=== PATIENT | female | born 1985 | race Caucasian/White ===

== ENCOUNTER → 2018-05-15 | Outpatient (CLI) | payer OTHER ==
[~2018-05-15] MED LIST: METF-397 PO
== END ==
LOC: LABNPT 09:29
PROVIDERS: ATTEND Obstetrics & Gynecology
DX: O28.8 Other abnormal findings on antenatal screening of mother (principal)
CPT/HCPCS: 82570; 84156

== ENCOUNTER 2018-05-18 12:58 | Outpatient (CLI) | payer OTHER ==
[~2018-05-18] VITALS: Ht 165.1 cm; Wt 79.1 kg
[2018-05-18] MEDS ORDERED: METF-397 PO (13:13)
[2018-05-18 13:14] VITALS: BP 124/85
== END 2018-05-18 15:30 | disposition home or self-care (01) ==
LOC: PREOP 12:58
PROVIDERS: ATTEND Obstetrics & Gynecology
DX: Z01.818 Encounter for other preprocedural examination (principal)
CPT/HCPCS: 87081

== ENCOUNTER → 2018-05-18 | Outpatient (CLI) | payer OTHER | LOC: LABNPT 15:21 | PROVIDERS: ATTEND Obstetrics & Gynecology | DX: O28.8 Other abnormal findings on antenatal screening of mother (principal) | CPT/HCPCS: 82570; 84156 ==

== ENCOUNTER 2018-05-26 12:40 | Inpatient (IN) | payer OTHER ==
[~2018-05-26] VITALS: Ht 165.1 cm; Wt 79.5 kg
--- NOTE | 2018-05-26 12:33 | NUR ---
Arrived to unit for repeat . Wt obtained and to room 315. gowned and to bed. Oriented to room, call light and surroundings. Oriented to plan of care.
--- OUTSIDE RECORDS SUMMARY | 2018-05-26 12:45 | XMS REPORT ---
Author Author Jatinder Morales [facility] Address [address] [place], [place] [id number] Care Team Providers Care Loading Manager Name Role Phone Jatinder Morales PCP Allergies and Adverse Reactions Name Reaction Notes NO KNOWN DRUG ALLERGIES Plan of Treatment Not available. Medications Active Name Start Date Estimated Completion Date SIG Comments TIMI (28) 3-0.02 mg oral tablet 12/03/2015 TAKE 1 TABLET BY ORAL ROUTE ONCE DAILY FOR 28 DAYS alprazolam 0.25 mg oral tablet 02/04/2016 take 1 tablet by oral route 2 times a day as needed Name Start Date Expiration Date SIG Comments omeprazole 20 mg oral capsule,delayed release(DR/EC) 03/22/2012 06/20/2012 take 1 capsule by oral route 2 times a day for 30 days [facility] D 24 Hour 180-240 mg oral tablet extended release 24 hr 11/28/20122012 TAKE 1 TABLET BY MOUTH DAILY Diflucan 150 mg oral tablet 03/29/2014 03/30/2014 take 1 tablet (150 mg) by oral route once for 1 day TIMI (28) 3-0.02 mg oral tablet 12/09/2014 03/31/2015 take 1 tablet by oral route once daily for 28 days Discontinued Name Start Date Discontinued Date SIG Comments Zoloft 50 mg oral tablet 05/27/2009 03/30/2011 take 1 tablet (50 mg) by oral route once daily Ortho Tri-Cyclen (28) 0.18/0.215/0.25 mg-35 mcg (28) oral tablet 05/27/2009 03/30/2011 take 1 tablet by oral route once daily paroxetine HCl 20 mg oral tablet 04/03/2012 06/15/2012 take 1 tablet (20 mg) by oral route once daily Retin-A 0.05 % topical cream 04/05/2012 07/11/2013 apply to the affected area( s) by topical route once daily at bedtime alprazolam 0.25 mg oral tablet 06/15/2012 07/11/2013 take 1 tablet by oral route daily as needed spironolactone 100 mg oral tablet 04/04/2013 07/11/2013 TAKE 1 TABLET BY MOUTH TWICE DAILY Wal-Fex D 24 Hour 180-240 mg oral tablet extended release 24 hr 05/17/201304/2014 TAKE 1 TABLET BY MOUTH EVERY DAY Sprintec (28) 0.25-35 mg-mcg oral tablet 07/11/2013 03/29/2014 take 1 tablet by oral route once daily Anny-D 24 Hour 180-240 mg oral tablet extended release 24 hr 12/09/2014 take 1 tablet by oral route once daily on an empty stomach with a glass of water for 30 days Problem List Description Status Onset *No known medical problems Active Vital Signs Date Time BP-Sys(mm[Hg] BP-Janeth(mm[Hg]) HR(bpm) RR(rpm) Temp WT HT HC BMI BSA BMI Percentile O2 Sat(%) 02/04/2016 3:56:00 PM 112 mmHg 80 mmHg 78 bpm 16 rpm 97.6 F 163 lbs 64 in 27.98 kg/m2 1.83 m2 99 % 04/07/2015 9:23:00 AM 124 mmHg 66 mmHg 82 bpm 18 rpm 97.6 F 144.125 lbs 64 in 24.7387 kg/m 1.7181 m 99 % 12/09/2014 3:47:00 PM 124 mmHg 64 mmHg 81 bpm 18 rpm 98.2 F 162.125 lbs 64 in 27.83 kg/m2 1.82 m2 98 % 03/29/2014 10:44:00 AM 120 mmHg 69 mmHg 78 bpm 98 F 155 lbs 64 in 26.6054 kg/m 1.7818 m 07/11/2013 3:49:00 PM 136 mmHg 68 mmHg 89 bpm 18 rpm 99.8 F 158.5 lbs 64 in 27.21 kg/m2 1.80 m2 100 % 04/04/2013 8:34:00 AM 112 mmHg 70 mmHg 95 bpm 16 rpm 97.6 F 153.375 lbs 97 % 12/11/2012 8:36:00 AM 115 mmHg 78 mmHg 80 bpm 20 rpm 97.7 F 159 lbs 64 in 27.29 kg/m2 1.80 m2 97 % 07/31/2012 4:15:00 PM 100 mmHg 78 mmHg 98 bpm 18 rpm 98.1 F 160.6 lbs 64 in 27.5666 kg/m 1.8137 m 98 % 06/15/2012 4:08:00 PM 120 mmHg 62 mmHg 88 bpm 16 rpm 98.6 F 157 lbs 98 % 04/03/2012 3:49:00 PM 122 mmHg 80 mmHg 77 bpm 16 rpm 98.2 F 155.5 lbs 98 % 03/22/2012 4:16:00 PM 110 mmHg 76 mmHg 76 bpm 16 rpm 98.5 F 152.375 lbs 98 % 03/30/2011 3:26:00 PM 128 mmHg 68 mmHg 80 bpm 144 lbs 64 in 24.7173 kg/m 1.7174 m 05/26/2009 3:14:00 PM 128 mmHg 72 mmHg 100 bpm 18 rpm 98.6 F 157.25 lbs 66 in 25.38 kg/m2 1.82 m2 Social History Name Description Comments Alcohol Current some day Occasionally Tobacco Current some day smoker Social smoker Living with significant other Clerical History of Procedures Date Ordered Description Order Status 04/07/2015 12:00 AM SPECIMEN HANDLING OFFICE-LAB Reviewed 04/07/2015 12:00 AM CYTOPATH C/V MANUAL Returned 03/30/2011 12:00 AM CYTOPATH TBS C/V MANUAL Reviewed 03/30/2011 12:00 AM SPECIMEN HANDLING OFFICE-LAB Reviewed 03/30/2011 12:00 AM CHYLMD TRACH DNA AMP PROBE Reviewed 03/30/2011 12:00 AM N.GONORRHOEAE DNA AMP PROB Reviewed 12/11/2012 12:00 AM URINE CULTURE/COLONY COUNT Returned 12/11/2012 12:00 AM SMEAR WET MOUNT SALINE/INK Returned 12/11/2012 12:00 AM TISSUE EXAM FOR FUNGI Returned 04/04/2013 12:00 AM METABOLIC PANEL TOTAL CA Returned 04/04/2013 12:00 AM REMOVE INTRAUTERINE DEVICE Reviewed 07/11/2013 12:00 AM CHORIONIC GONADOTROPIN ASSAY Returned 05/26/2009 12:00 AM COMPREHEN METABOLIC PANEL Reviewed 05/26/2009 12:00 AM ASSAY THYROID STIM HORMONE Reviewed 05/26/2009 12:00 AM COMPLETE CBC W/AUTO DIFF WBC Reviewed 05/26/2009 12:00 AM CHORIONIC GONADOTROPIN TEST Reviewed 02/11/2014 12:00 AM CHORIONIC GONADOTROPIN TEST Returned 03/29/2014 12:00 AM SPECIMEN HANDLING OFFICE-LAB Reviewed 03/29/2014 12:00 AM CYTOPATH C/V THIN LAYER Returned 12/10/2014 12:00 AM ASSAY OF INSULIN Returned Results Summary Data and Description Results 04/03/2012 7:27 PM WET PREP NO TRICH SEEN CLUE CELLS NONE SEEN 12/11/2012 10:43 AM WET PREP NO TRICH SEEN CLUE CELLS NONE SEEN 04/04/2013 9:38 AM GLUCOSE 118.0 mg/dLSODIUM 137.0 mmol/LPOTASSIUM 4.60 mmol/ LCHLORIDE 103.0 mmol/LCO2 25.0 mmol/LBUN 9.0 mg/dLCREATININE 0.80 mg/dLCALCIUM 9.40 mg/dLeGFR >60 mL/min/1.73 m2 04/04/2013 10:46 AM WET PREP NO TRICH SEEN CLUE CELLS PRESENT 02/11/2014 3:58 PM BETA HCG QUANT <1 MIU/ML History Of Immunizations Not available. History of Past Illness Name Date of Onset Comments Fatigue May 26 2009 3:20PM Depressive Disorder May 26 2009 3:20PM Oligomenorrhea May 26 2009 3:20PM *No known medical problems Routine gynecological examination Mar 30 2011 3:32PM Contraception, Surveillance Mar 30 2011 3:32PM Abdominal pain; epigastric Mar 22 2012 4:19PM Routine gynecological examination Apr 03 2012 3:52PM Acne Apr 03 2012 3:52PM Hirsutism Apr 03 2012 3:52PM Anxiety Disorder Jun 15 2012 4:11PM Hirsutism Jun 15 2012 4:11PM Rhinitis, Allergic Jul 31 2012 4:16PM Vaginal Discharge Dec 11 2012 8:41AM Urinary Frequency Dec 11 2012 8:41AM Routine gynecological examination Apr 04 2013 8:37AM Acne Apr 04 2013 8:37AM Hirsutism Apr 04 2013 8:37AM Vaginal Discharge Apr 04 2013 8:37AM IUD Removal Apr 04 2013 9:07AM Amenorrhea, Rule Out Jul 11 2013 3:52PM Amenorrhea Feb 11 2014 10:11AM Routine gynecological examination Mar 29 2014 10:53AM Candidal Vaginitis Mar 29 2014 10:53AM PCOS (polycystic ovarian syndrome) Dec 09 2014 3:48PM Hirsutism Dec 09 2014 3:48PM Benign skin lesion Dec 09 2014 3:48PM PCOS (polycystic ovarian syndrome) Dec 10 2014 12:07PM Routine gynecological examination Apr 07 2015 9:40AM Vaginal Discharge Apr 07 2015 9:40AM Anxiety Feb 04 2016 3:57PM Payers Insurance Name Company Name Plan Name Plan Number Policy Number Policy Group Number Start Date [facility] [id number] N[facility]A [facility] [id number] Tuesday, 2009 History of Encounters Visit Date Visit Type Provider 02/04/2016 Office visit Jatinder Morales EDGE TRIMMING MACHINE OPERATOR 04/07/2015 Office visit Nikkie Hercules EDGE TRIMMING MACHINE OPERATOR 12/09/2014 Office visit Nikkie Hercules EDGE TRIMMING MACHINE OPERATOR 03/29/2014 Office visit Nettie Fernández EDGE TRIMMING MACHINE OPERATOR 07/11/2013 Office visit Nikkie Hercules EDGE TRIMMING MACHINE OPERATOR 04/04/2013 Office visit Kasandra Delong MD 12/11/2012 Office visit Aracely Jules EDGE TRIMMING MACHINE OPERATOR 07/31/2012 Office visit Aracely Jules EDGE TRIMMING MACHINE OPERATOR 06/15/2012 Office visit Kasandra Delong MD 04/03/2012 Office visit Kasandra Delong MD 03/22/2012 Office visit Kasandra Delong MD 03/30/2011 Office visit Javier Boone MD 05/26/2009 Office visit Kasandra Delong MD 02/18/2009 Office visit Sebas Mukherjee MD 01/13/2009 Office visit Sebas Mukherjee MD
--- OUTSIDE RECORDS SUMMARY | 2018-05-26 12:45 | XMS REPORT ---
Author Author Jatinder Morales [facility] Address [address] [place], [place] [address] Care Team Providers Care Supervisor Long Goods Name Role Phone Jatinder Morales PCP Nikkie Hercules PreferredProvider Unavailable Allergies and Adverse Reactions Name Reaction Notes NO KNOWN DRUG ALLERGIES Plan of Treatment Not available. Medications Active Name Start Date Estimated Completion Date SIG Comments alprazolam 1 mg oral tablet 02/25/2017 take 0.5-1 tablet by oral route 2 times a [...] oral route once daily for 28 days TIMI (28) 3-0.02 mg oral tablet 12/03/2015 TAKE 1 TABLET BY ORAL ROUTE ONCE DAILY FOR 28 DAYS Discontinued Name Start Date Discontinued Date SIG [...] HC BMI BSA BMI Percentile O2 Sat(%) 02/25/2017 10:09:00 AM 118 mmHg 70 mmHg 78 bpm 16 rpm 96.6 F 157.125 lbs 64 in 26.97 kg/m2 1.79 m2 98 % 02/04/2016 3:56:00 PM 112 mmHg 80 mmHg 78 bpm 16 rpm 97.6 F 163 lbs 64 in 27.9786 kg/m 1.8272 m 99 % 04/07/2015 9:23:00 AM 124 mmHg 66 mmHg 82 bpm 18 rpm 97.6 F 144.125 lbs 64 in 24.74 kg/m2 1.72 m2 99 % 12/09/2014 3:47:00 PM 124 mmHg 64 mmHg 81 bpm 18 rpm 98.2 F 162.125 lbs 64 in 27.8284 kg/m 1.8223 m 98 % 03/29/2014 10:44:00 AM 120 mmHg 69 mmHg 78 bpm 98 F 155 lbs 64 in 26.61 kg/m2 1.78 m2 07/11/2013 3:49:00 PM 136 mmHg 68 mmHg 89 bpm 18 rpm 99.8 F 158.5 lbs 64 in 27.2062 kg/m 1.8018 m 100 % 04/04/2013 8:34:00 AM 112 mmHg 70 mmHg 95 bpm 16 rpm 97.6 F 153.375 lbs 97 % 12/11/2012 8:36:00 AM 115 mmHg 78 mmHg 80 bpm 20 rpm 97.7 F 159 lbs 64 in 27.292 kg/m 1.8046 m 97 % 07/31/2012 4:15:00 PM 100 mmHg 78 mmHg 98 bpm 18 rpm 98.1 F 160.6 lbs 64 in 27.57 kg/m2 1.81 m2 98 % 06/15/2012 4:08:00 PM 120 mmHg [...] mmHg 80 bpm 144 lbs 64 in 24.72 kg/m2 1.72 m2 05/26/2009 3:14:00 PM 128 mmHg 72 mmHg 100 bpm 18 rpm 98.6 F 157.25 lbs 66 in 25.3806 kg/m 1.8225 m Social History Name Description Comments Alcohol Current some day Occasionally Tobacco Current some day smoker Social smoker Living with significant other Clerical History of Procedures Date Ordered Description Order Status 04/07/2015 12:00 AM SPECIMEN HANDLING OFFICE-LAB Reviewed 04/07/2015 12:00 AM CYTOPATH C/V MANUAL Reviewed 03/30/2011 12:00 AM CYTOPATH TBS C/V MANUAL Reviewed 03/30/2011 12:00 AM SPECIMEN HANDLING OFFICE-LAB Reviewed 03/30/2011 12:00 AM CHYLMD TRACH DNA AMP PROBE Reviewed 03/30/2011 12:00 AM N.GONORRHOEAE DNA AMP PROB Reviewed 12/11/2012 12:00 AM URINE CULTURE/COLONY COUNT Reviewed 12/11/2012 12:00 AM SMEAR WET MOUNT SALINE/INK Reviewed 12/11/2012 12:00 AM TISSUE EXAM FOR FUNGI Reviewed 04/04/2013 12:00 AM METABOLIC PANEL TOTAL CA Reviewed 04/04/2013 12:00 AM REMOVE INTRAUTERINE DEVICE Reviewed 07/11/2013 12:00 AM CHORIONIC GONADOTROPIN ASSAY Reviewed 05/26/2009 12:00 AM COMPREHEN METABOLIC PANEL Reviewed 05/26/2009 12:00 AM ASSAY THYROID STIM HORMONE Reviewed 05/26/2009 12:00 AM COMPLETE CBC W/AUTO DIFF WBC Reviewed 05/26/2009 12:00 AM CHORIONIC GONADOTROPIN TEST Reviewed 02/11/2014 12:00 AM CHORIONIC GONADOTROPIN TEST Reviewed 03/29/2014 12:00 AM SPECIMEN HANDLING OFFICE-LAB Reviewed 03/29/2014 12:00 AM CYTOPATH C/V THIN LAYER Reviewed 12/10/2014 12:00 AM ASSAY OF INSULIN Reviewed Results Summary Date and Description Results 12/11/2012 10:43 AM WET PREP NO TRICH SEEN CLUE CELLS NONE SEEN 04/04/2013 9:38 AM GLUCOSE 118.0 mg/dLSODIUM 137.0 mmol/LPOTASSIUM 4.60 mmol/ LCHLORIDE 103.0 mmol/LCO2 25.0 mmol/LBUN 9.0 mg/dLCREATININE 0.80 mg/dLCALCIUM 9.40 mg/dLAGE 27 GFR NonAA 86 GFR AA 104 eGFR >60 mL/min/1.73 m2eGFR AA* >60 07/11/2013 4:20 PM TEST NEGATIVE 02/11/2014 3:58 PM BETA HCG QUANT <1 MIU/ML 12/16/2014 7:30 AM Insulin 14.0 History Of Immunizations Not available. History of [...] 2015 9:40AM Anxiety Feb 04 2016 3:57PM Anxiety Feb 25 2017 10:13AM Payers Insurance Name Company Name Plan Name Plan Number Policy Number Policy Group Number Start Date Cigsigrid Cigsigrid [id number] N/A BCBS [facility] [id number] Tuesday, 2009 [facility] [id number] N/A History of Encounters Visit Date Visit Type Provider 02/25/2017 Office visit Jatinder Morales POULTRY SCALDER 02/04/2016 Office visit Jatinder Morales POULTRY SCALDER 04/07/2015 Office visit Nikkie Hercules POULTRY SCALDER 12/09/2014 Office visit Nikkie Hercules POULTRY SCALDER 03/29/2014 Office visit Nettie Fernández POULTRY SCALDER 07/11/2013 Office visit Nikkie Hercules POULTRY SCALDER 04/04/2013 Office visit Kasandra Delong MD 12/11/2012 Office visit Aracely Jules POULTRY SCALDER 07/31/2012 Office visit Aracely Jules POULTRY SCALDER 06/15/2012 Office visit Kasandra Delong MD 04/03/2012 Office visit Kasandra Delong MD 03/22/2012 Office visit Kasandra Delong MD 03/30/2011 Office visit Javier Boone MD 05/26/2009 Office visit Kasandra Delong MD 02/18/2009 Office visit Sebas Mukherjee MD 01/13/2009 Office visit Sebas Mukherjee MD
--- OUTSIDE RECORDS SUMMARY | 2018-05-26 12:45 | XMS REPORT ---
Author Author Nikkie Hercules Organization [facility] Address [address] [place], [place] [id number] Care Team Providers Care Liner Replacer Name Role Phone Nikkie Hercules PCP Unavailable Allergies and Adverse Reactions Name Reaction Notes NO KNOWN DRUG ALLERGIES Plan of Treatment Planned Activity Comments Planned Date Planned Time Plan/Goal CYTOPATH C/V MANUAL 04/07/2015 12:00 AM Medications Name Start Date Expiration Date SIG Comments omeprazole 20 mg oral capsule,delayed release(/EC) 03/22/2012 06/20/2012 take 1 capsule by oral [...] HC BMI BSA BMI Percentile O2 Sat(%) 04/07/2015 9:23:00 AM 124 mmHg 66 mmHg [...] 04/07/2015 12:00 AM SPECIMEN HANDLING OFFICE-LAB Reviewed 03/30/2011 12:00 AM CYTOPATH TBS C/V [...] Routine gynecological examination Apr 07 2015 9:40AM Payers Insurance Name Company Name Plan Name Plan Number Policy Number Policy Group Number Start Date [facility] [id number] N/A Bcbs Bc[facility] [id number] Tuesday, 2009 History of Encounters Visit Date Visit Type Provider 04/07/2015 Office visit Nikkie Hercules POOL INSTALLER 12/09/2014 Office visit Nikkie Hercules POOL INSTALLER 03/29/2014 Office visit Nettie Fernández POOL INSTALLER 07/11/2013 Office visit Nikkie Hercules POOL INSTALLER 04/04/2013 Office visit Kasandra Delong MD 12/11/2012 Office visit Aracely Jules POOL INSTALLER 07/31/2012 Office visit Aracely Jules POOL INSTALLER 06/15/2012 Office visit Kasandra Delong MD 04/03/2012 Office visit Kasandra Delong MD 03/22/2012 Office visit Kasandra Delong MD 03/30/2011 Office visit Javier Boone MD 05/26/2009 Office visit Kasandra Delong MD 02/18/2009 Office visit Sebas Mukherjee MD 01/13/2009 Office visit Sebas Mukherjee MD
--- OUTSIDE RECORDS SUMMARY | 2018-05-26 12:46 | XMS REPORT ---
Author Author Nikkie Hercules [facility] Address [address] [place], [place] [address] Care Team Providers Care Insole Doubler Name Role Phone Nikkie Hercules PCP Unavailable Allergies and Adverse Reactions Name Reaction Notes NO KNOWN DRUG ALLERGIES Plan of Treatment Not available. Medications Name Start Date Expiration Date SIG [...] 9:40AM Vaginal Discharge Apr 07 2015 9:40AM Payers Insurance Name Company Name Plan Name Plan Number Policy Number Policy Group Number Start Date [facility] [id number] N/A BCBS [facility] [id number] Tuesday, 2009 History of Encounters Visit Date Visit Type Provider 04/07/2015 Office visit Nikkie Hercules HAND ROLLER 12/09/2014 Office visit Nikkie Hercules HAND ROLLER 03/29/2014 Office visit Nettie Fernández HAND ROLLER 07/11/2013 Office visit Nikkie Hercules HAND ROLLER 04/04/2013 Office visit Kasandra Delong MD 12/11/2012 Office visit Aracely Jules HAND ROLLER 07/31/2012 Office visit Aracely Jules HAND ROLLER 06/15/2012 Office visit Kasandra Delong MD 04/03/2012 Office visit Kasandra Delong MD 03/22/2012 Office visit Kasandra Delong MD 03/30/2011 Office visit Javier Boone MD 05/26/2009 Office visit Kasandra Delong MD 02/18/2009 Office visit Sebas Mukherjee MD 01/13/2009 Office visit Sebas Mukherjee MD
--- OUTSIDE RECORDS SUMMARY | 2018-05-26 12:46 | XMS REPORT ---
Author Author Jatinder Morales [facility] Address [address] [place], [place] [id number] Care Team Providers Care Med Care Manager Name Role Phone Jatinder Morales PCP Nikkie Hercules PreferredProvider Allergies and Adverse Reactions Name Reaction Notes NO KNOWN DRUG ALLERGIES Plan of Treatment Not available. Medications Active Name Start Date Estimated Completion Date SIG Comments alprazolam 1 mg oral tablet 02/25/2017 take 0.5-1 tablet by oral route 2 times a day as needed Tamiflu 75 mg oral capsule 06/08/2017 take 1 capsule (75 mg) by oral route 2 times per day for 5 days Zofran ODT 4 mg oral tablet,disintegrating 06/08/2017 dissolve 1 tablet by oral route every 8 hours Name Start Date Expiration Date SIG Comments [...] HC BMI BSA BMI Percentile O2 Sat(%) 06/08/2017 5:31:00 PM 128 mmHg 78 mmHg 122 bpm 28 rpm 100.7 F 164 lbs 64 in 28.15 kg/m2 1.83 m2 97 % 02/25/2017 10:09:00 AM 118 mmHg 70 mmHg 78 bpm 16 rpm 96.6 F 157.125 lbs 64 in 26.9702 kg/m 1.794 m 98 % 02/04/2016 3:56:00 PM 112 mmHg [...] 12:00 AM N.GONORRHOEAE DNA AMP PROB Reviewed 06/08/2017 12:00 AM INFLUENZA A/B AG EIA Returned 06/08/2017 12:00 AM Zofran 4mg Injection Reviewed 06/08/2017 12:00 AM THER/PROPH/DIAG INJ SC/IM Reviewed 12/11/2012 12:00 AM URINE CULTURE/COLONY COUNT [...] 2016 3:57PM Anxiety Feb 25 2017 10:13AM Fever in other diseases Jun 08 2017 5:34PM Non-intractable vomiting with nausea, unspecified vomiting type Jun 08 2017 5 :34PM Influenza A Jun 08 2017 5:34PM Payers Insurance Name Company Name Plan Name Plan Number Policy Number Policy Group Number Start Date [employer] [id number] N/A [facility] [id number] Tuesday, 2009 [facility] [id number] N/A History of Encounters Visit Date Visit Type Provider 06/08/2017 Office visit Jatinder Morales CERTIFIED LEGAL SECRETARY SPECIALIST 02/25/2017 Office visit Jatinder Morales CERTIFIED LEGAL SECRETARY SPECIALIST 02/04/2016 Office visit Jatinder Morales CERTIFIED LEGAL SECRETARY SPECIALIST 04/07/2015 Office visit Nikkie Hercules CERTIFIED LEGAL SECRETARY SPECIALIST 12/09/2014 Office visit Nikkie Hercules CERTIFIED LEGAL SECRETARY SPECIALIST 03/29/2014 Office visit Nettie Fernández CERTIFIED LEGAL SECRETARY SPECIALIST 07/11/2013 Office visit Nikkie Hercules CERTIFIED LEGAL SECRETARY SPECIALIST 04/04/2013 Office visit Kasandra Delong MD 12/11/2012 Office visit Aracely Jules CERTIFIED LEGAL SECRETARY SPECIALIST 07/31/2012 Office visit Aracely Jules CERTIFIED LEGAL SECRETARY SPECIALIST 06/15/2012 Office visit Kasandra Delong MD 04/03/2012 Office visit Kasandra Delong MD 03/22/2012 Office visit Kasandra Delong MD 03/30/2011 Office visit Javier Boone MD 05/26/2009 Office visit Kasandra Delong MD 02/18/2009 Office visit Sebas Mukherjee MD 01/13/2009 Office visit Sebas Mukherjee MD
--- OUTSIDE RECORDS SUMMARY | 2018-05-26 12:46 | XMS REPORT ---
Author Author Nikkie Hercules [facility] Address [address] [place], [place] [address] Care Team Providers Care Assignment Officer Name Role Phone Nikkie Hercules PCP Unavailable [...] Policy Number Policy Group Number Start Date [facility] [id number] N/A BCBS Bcbs [facility] [id number] Tuesday, 2009 History of Encounters Visit Date Visit Type Provider 04/07/2015 Office visit Nikkie Hercules ARCHEOLOGIST CLASSICAL 12/09/2014 Office visit Nikkie Hercules ARCHEOLOGIST CLASSICAL 03/29/2014 Office visit Nettie Fernández ARCHEOLOGIST CLASSICAL 07/11/2013 Office visit Nikkie Hercules ARCHEOLOGIST CLASSICAL 04/04/2013 Office visit Kasandra Delong MD 12/11/2012 Office visit Aracely Jules ARCHEOLOGIST CLASSICAL 07/31/2012 Office visit Aracely Jules ARCHEOLOGIST CLASSICAL 06/15/2012 Office visit Kasandra Delong MD 04/03/2012 Office visit Kasandra Delong MD 03/22/2012 Office visit Kasandra Delong MD 03/30/2011 Office visit Javier Boone MD 05/26/2009 Office visit Kasandra Delong MD 02/18/2009 Office visit Sebas Mukherjee MD 01/13/2009 Office visit Sebas Mukherjee MD
--- OUTSIDE RECORDS SUMMARY | 2018-05-26 12:47 | XMS REPORT | Continuity of Care Document ---
Author Author [facility] Address Unknown Phone Unavailable Allergies Active Description Code Type Severity Reaction Onset Reported/Identified Relationship to Patient Clinical Status Yes No Known Drug Allergies [id number] N/A N/A Yes No Known Drug Allergies [id number] Drug Allergy Unknown N/A 05/18/2018 Medications There is no data. Problems Date Dx Coded Attending Type Code Diagnosis Diagnosed By 05/17/2018 PRATIBHA ROBERTS MD, Ot O28.8 OTHER ABNORMAL FINDINGS ON SCR 05/18/2018 PRATIBHA ROBERTS MD, Ot O28.8 OTHER ABNORMAL FINDINGS ON SCR 05/18/2018 PRATIBHA ROBERTS MD Ot O28.8 OTHER ABNORMAL FINDINGS ON SCR 05/19/2018 PRATIBHA ROBERTS MD Ot Z01.818 ENCOUNTER FOR OTHER PREPROCEDURAL EXAMIN Procedures There is no data. Results Test Result Range Urine protein/creatinine mass ratio - 05/15/18 09:29 Urine protein measurement (mass/volume) 8 mg/dL 6-12 Urine creatinine measurement (mass/volume) 71 mg/dL 30- 125 Urine protein/creatinine mass ratio 0.11 NRG Methicillin resistant Staphylococcus aureus (MRSA) screening culture - 14:50 Methicillin resistant Staphylococcus aureus (MRSA) screening culture NEG NRG Urine protein/creatinine mass ratio - 05/18/18 15:21 Urine protein measurement (mass/volume) 12 mg/dL 6-12 Urine creatinine measurement (mass/volume) 101 mg/dL 30- 125 Urine protein/creatinine mass ratio 0.12 NRG Encounters ACCT No. Visit Date/Time Discharge Status Pt. Type Provider Facility Loc./Unit Complaint [id number] 06/08/2017 19:12:15 06/08/2017 23:59:59 [facility] Outpatient Jatinder Morales [id number] 02/25/2017 11:07:41 02/25/2017 23:59:59 [facility] Outpatient Jatinder Morales [id number] 02/04/2016 16:48:19 02/04/2016 23:59:59 [facility] Outpatient Jatinder Morales [id number] 04/07/2015 10:13:37 04/07/2015 23:59:59 [facility] Outpatient Nikkie Hercules [id number] 01/06/2015 22:14:38 01/06/2015 23:59:59 [facility] Outpatient Nikkie Hercules [id number] 03/29/2014 12:44:08 03/29/2014 23:59:59 [facility] Outpatient Nettie Fernández [id number] 07/11/2013 16:40:08 07/11/2013 23:59:59 [facility] Outpatient Nikkie Hercules [id number] 05/18/2018 15:21:00 05/18/2018 23:59:59 [facility] Outpatient PRATIBHA ROBERTS MD [id number] 05/18/2018 12:58:00 05/18/2018 15:30:00 DIS Outpatient PRATIBHA ROBERTS MD [facility] PREOP PREVIOUS [id number] 05/15/2018 09:29:00 05/15/2018 23:59:59 CLS Outpatient PRATIBHA ROBERTS MD [facility] LABT [id number] 05/26/2018 14:45:00 PEN Preadmit PRATIBHA ROBERTS MD PREVIOUS [id number] 09/14/2017 18:40:50 Document Registration [id number] 06/08/2017 17:56:13 Document Registration
--- OUTSIDE RECORDS SUMMARY | 2018-05-26 12:47 | XMS REPORT ---
Author Author Nikkie Hercules [facility] Address [address] [place], [place] [address] Care Team Providers Care Banking Teacher Name Role Phone Nikkie Hercules PCP Unavailable [...] Policy Number Policy Group Number Start Date [facility] [id number] [id number] Tuesday, 2009 History of Encounters Visit Date Visit Type Provider 04/07/2015 Office visit Nikkie Hercules DRAINLAYER 12/09/2014 Office visit Nikkie Hercules DRAINLAYER 03/29/2014 Office visit Nettie Fernández DRAINLAYER 07/11/2013 Office visit Nikkie Hercules DRAINLAYER 04/04/2013 Office visit Kasandra Delong MD 12/11/2012 Office visit Aracely Jules DRAINLAYER 07/31/2012 Office visit Aracely Jules DRAINLAYER 06/15/2012 Office visit Kasandra Delong MD 04/03/2012 Office visit Kasandra Delong MD 03/22/2012 Office visit Kasandra Delong MD 03/30/2011 Office visit Javier Boone MD 05/26/2009 Office visit Kasandra Delong MD 02/18/2009 Office visit Sebas Mukherjee MD 01/13/2009 Office visit Sebas Mukherjee MD
--- OUTSIDE RECORDS SUMMARY | 2018-05-26 12:47 | XMS REPORT ---
Author Author Nikkie Hercules [facility] Address [address] [place], [place] [id number] Care Team Providers Care Manager Retail Name Role Phone Nikkie Hercules PCP Unavailable Allergies and Adverse Reactions Name Reaction Notes NO KNOWN DRUG ALLERGIES Plan of Treatment Not available. Medications Active Name Start Date Estimated Completion Date SIG Comments TIMI (28) oral tablet 3-0.02 mg 12/09/2014 03/31/2015 take 1 tablet by oral route once daily for 28 days Name Start Date Expiration Date SIG Comments omeprazole Oral capsule,delayed release(DR/EC) 20 mg 03/22/2012 06/20/2012 take 1 capsule by oral route 2 times a day for 30 days [facility]-Fex D 24 Hour Oral tablet extended release 24 hr 180-240 mg 11/28/20122012 TAKE 1 TABLET BY MOUTH DAILY Diflucan oral tablet 150 mg 03/29/2014 03/30/2014 take 1 tablet (150 mg) by oral route once for 1 day Discontinued Name Start Date Discontinued Date SIG Comments Zoloft Oral Tablet 50 mg 05/27/2009 03/30/2011 take 1 tablet (50 mg) by oral route once daily Ortho Tri-Cyclen (28) Oral Tablet .18/.215/.25-35 mg-mcg 05/27/20092010 take 1 tablet by oral route once daily paroxetine HCl Oral tablet 20 mg 04/03/2012 06/15/2012 take 1 tablet (20 mg) by oral route once daily Retin-A Topical Cream 0.05 % 04/05/2012 07/11/2013 apply to the affected area( s) by topical route once daily at bedtime alprazolam Oral tablet 0.25 mg 06/15/2012 07/11/2013 take 1 tablet by oral route daily as needed spironolactone Oral tablet 100 mg 04/04/2013 07/11/2013 TAKE 1 TABLET BY MOUTH TWICE DAILY Wal-Fex D 24 Hour oral tablet extended release 24 hr 180-240 mg 05/17/201304/2014 TAKE 1 TABLET BY MOUTH EVERY DAY Sprintec (28) oral tablet 0.25-35 mg-mcg 07/11/2013 03/29/2014 take 1 tablet by oral route once daily Anny-D 24 Hour oral tablet extended release 24 hr 180-240 mg 12/09/2014 take 1 tablet by oral route once daily on an empty stomach with a glass of water for 30 days Problem List Description Status Onset *No known medical problems Active Vital Signs Date Time BP-Sys(mm[Hg] BP-Janeth(mm[Hg]) HR(bpm) RR(rpm) Temp WT HT HC BMI BSA BMI Percentile O2 Sat(%) 12/09/2014 3:47:00 PM 124 mmHg 64 mmHg [...] m2 Social History Name Description Comments Alcohol Occasionally Tobacco Current some day smoker Social smoker Living with significant other Clerical History of Procedures Date Ordered Description Order Status 03/30/2011 12:00 AM CYTOPATH TBS C/V MANUAL [...] (polycystic ovarian syndrome) Dec 10 2014 12:07PM Payers Insurance Name Company Name Plan Name Plan Number Policy Number Policy Group Number Start Date [facility] [id number] N/A [employer] [facility] [id number] Tuesday, 2009 History of Encounters Visit Date Visit Type Provider 12/09/2014 Office visit Nikkie Hercules SUPERINTENDENT MEASUREMENT 03/29/2014 Office visit Nettie Fernández SUPERINTENDENT MEASUREMENT 07/11/2013 Office visit Nikkie Hercules SUPERINTENDENT MEASUREMENT 04/04/2013 Office visit Kasandra eDlong MD 12/11/2012 Office visit Aracely Jules SUPERINTENDENT MEASUREMENT 07/31/2012 Office visit Aracely Jules SUPERINTENDENT MEASUREMENT 06/15/2012 Office visit Kasandra Delong MD 04/03/2012 Office visit Kasandra Delong MD 03/22/2012 Office visit Kasandra Delong MD 03/30/2011 Office visit Javier Boone MD 05/26/2009 Office visit Kasandra Delong MD 02/18/2009 Office visit Sebas Mukherjee MD 01/13/2009 Office visit Sebas Mukherjee MD
[2018-05-26] MEDS ORDERED: LACTATED RINGERS 1,000 ML IV PRN ×2 (13:10)
[2018-05-26] MEDS ORDERED: METOCLOPRAMIDE INJ 10 MG/2 ML (REGLAN) IV ONE (13:15)
[2018-05-26] MEDS ORDERED: ceFAZolin 2 GM IV Premixed 50 ML IV ONE (13:15)
[2018-05-26] MEDS ORDERED: CITRIC ACID/SOB CIT (BICITRA) 30 ML UDC PO ONE (13:15)
[2018-05-26] MEDS ORDERED: CATHETER FLUSH 10 ML SYR IV PRN (13:15)
[2018-05-26] MEDS ORDERED: metroNIDAZOLE 500MG/100ML IVPB 100 ML IV ONE (13:15)
[2018-05-26] MEDS ORDERED: FAMOTIDINE 20MG/2ML IV (PEPCID) IV ONE (13:15)
[2018-05-26 13:50] VITALS: BP 130/86
[2018-05-26] MEDS ORDERED: PREN-37 PO (14:11)
[2018-05-26 14:15] LABS: BASOPHILS % (AUTO) 0 % (0-10); EOSINOPHILS % (AUTO) 0 % (0-10); HEMATOCRIT 37 % (35-52); HEMOGLOBIN 11.7 G/DL (11.5-16.0); LYMPHOCYTES # (AUTO) 1.6 X 10^3 (1.0-4.0); LYMPHOCYTES % (AUTO) 17 % (12-44); MEAN CORPUSCULAR HEMOGLOBIN 29 PG (25-34); MEAN CORPUSCULAR HGB CONC 32 G/DL (32-36); MEAN CORPUSCULAR VOLUME 91 FL (80-99); MEAN PLATELET VOLUME 12.2 FL (7.4-10.4); MONOCYTES # (AUTO) 0.6 X 10^3 (0.0-1.0); MONOCYTES % (AUTO) 7 % (0-12); NEUTROPHILS # (AUTO) 7.2 X 10^3 (1.8-7.8); NEUTROPHILS % (AUTO) 76 % (42-75); PLATELET COUNT 177 10^3/uL (130-400); RED BLOOD COUNT 4.03 10^6/uL (4.35-5.85); RED CELL DISTRIBUTION WIDTH 13.3 % (10.0-14.5); WHITE BLOOD COUNT 9.5 10^3/uL (4.3-11.0)
[2018-05-26] MEDS ORDERED: ONDANSETRON 4 MG/2 ML (SDV) Z0FRAN ONE (14:41)
[2018-05-26] MEDS ORDERED: OXYTOCIN/NORMAL SALINE 500 ML IV ONE ×2 (14:41→16:34)
[2018-05-26] MEDS ORDERED: BUPIVACAINE 0.25% 30 ML (SENSORCAINE) VIAL ONE (14:42)
[2018-05-26] MEDS ORDERED: fentaNYL INJECTION 100 MCG/2 ML AMP ONE (14:42)
[2018-05-26] MEDS ORDERED: OXYTOCIN/NORMAL SALINE 500 ML IV SCH (15:32)
--- NOTE | 2018-05-26 15:38 | History & Physical ---
History and Physical Date Seen by Provider: May 26, 2018 Time Seen by Provider: 15:35 This patient is a 30-year-old 1 white female with an EDC of 1 1619 admitted now 37-7 weeks gestation with gestational diabetes and with progressively increasing blood pressure/PIH. Her GBS culture was negative after 35 weeks gestation. Noted that she has had a fairly significantly dropping VIOLET. She does deny rupture membranes or bleeding. Patient is a type A -2 gestational diabetic with good blood sugar control with metformin Allergies are none Medications are vitamins metformin Valtrex and Atarax Medical social and surgical histories are per the antepartum record HEENT exam is normal Neck supple no lymphadenopathy no thyromegaly Abdomen is gravid soft nontender nondistended Extreme show clubbing or cyanosis. Homans sign. Pelvic exam is deferred Lab workLaboratory Tests 05/26/18 13:55 Assessment and plan ` 37 2/7 weeks' gestation with gestational diabetes the age and previous . Isn't VIOLET has fallen fairly significantly in the third trimester as well. She is admitted now for repeat delivery. Surgical risk complication recovering follow-up including the risk for prematurity issues for baby being born at 37+ weeks and 4 baby having exposure to gestational diabetes. 37-2/7 weeks' gestation with gestational diabetes and PIH Allergies and Home Medications Allergies Coded Allergies: No Known Drug Allergies (Unverified , 05/18/18) Home Medications Vit/Iron Fumarate/FA 1 Each Tablet, 1 EACH PO DAILY, (Reported) Patient Home Medication List Home Medication List Reviewed: Yes PRATIBHA ROBERTS MD May 26, 2018 15:38
[2018-05-26] MEDS ORDERED: D5 LR IV SOLUTION 1,000 ML IV ONE (15:40)
[2018-05-26] MEDS ORDERED: TETANUS,DIPTH,PERTUSS P/F (BOOSTRIX) 0.5 ML VIAL IM ONE (15:45)
[2018-05-26] MEDS ORDERED: MEASLES,MUMPS,RUBELLA 1 EA INJ SC ONE (15:45)
[2018-05-26] MEDS ORDERED: ONDANSETRON 4 MG/2 ML (SDV) Z0FRAN IVP PRN (15:45)
[2018-05-26] MEDS ORDERED: PROMETHAZINE INJ 25 MG/ML (PHENERGAN) AMP IM PRN (15:45)
[2018-05-26] MEDS ORDERED: MEPERIDINE (DEMEROL) INJ 100 MG/ML IM PRN (15:45)
--- NOTE | 2018-05-26 15:45 | NUR ---
Monitors off and pt ambulates to OR suite accompanied by OR staff.
[2018-05-26] MEDS ORDERED: FLU QUADRIvalent (5+ YOA) 2018-2019 (AFLURIA) 0.5 ML IM ONE (16:30)
[2018-05-26] MEDS ORDERED: KETOROLAC 30 MG/ML VIAL ONE (16:33)
[2018-05-26] MEDS: KETOROLAC 30 MG/ML VIAL IVP SCH ×2 (16:35→22:36)
[2018-05-26] MEDS ORDERED: NALOXONE 0.4 MG/ML 1 ML (NARCAN) VIAL IV PRN ×2 (17:15)
[2018-05-26] MEDS ORDERED: diphenhydrAMINE 50 MG/ML INJ (BENADRYL) IV PRN (17:15)
[2018-05-26] MEDS ORDERED: ONDANSETRON 4 MG/2 ML (SDV) Z0FRAN IV PRN (17:15)
[2018-05-26] MEDS ORDERED: METOCLOPRAMIDE INJ 10 MG/2 ML (REGLAN) IV PRN (17:15)
--- NOTE | 2018-05-26 17:35 | NUR ---
To room 304 via bed. awake and alert. Report received from Allyssa cope. Pt oriented to room, call light and surroundings.
[2018-05-26 17:55] VITALS: BP 130/75
--- NOTE | 2018-05-26 18:00 | NUR ---
RN assisted pt with latch of .
[2018-05-26 20:00] VITALS: BP 126/66
[2018-05-26] MEDS: DOCUSATE SODIUM 100 MG (COLACE) CAP PO SCH (20:24)
[2018-05-26] MEDS: oxyCODONE/APAP 10/325MG (PERCOCET 10) TABLET PO PRN (22:18)
[2018-05-26 23:39] VITALS: BP 123/65
--- NOTE | 2018-05-26 23:40 | NUR ---
REPORT RECEIVED AND CARES RESUMED BY THIS NURSE.
[2018-05-27] MEDS: oxyCODONE/APAP 10/325MG (PERCOCET 10) TABLET PO PRN ×5 (01:27→20:53)
--- NOTE | 2018-05-27 01:30 | NUR ---
PT ASSISTED TO BATHROOM. VOIDED WITHOUT DIFFICULTY. REPORTS RIGHT SIDED LOW ABD PAIN WITH MOVEMENT. DENIES ANY FLATUS. PT REQUESTS PAIN MEDS. PERCOCET 1 TAB PO GIVEN.
--- NOTE | 2018-05-27 02:53 | NUR ---
PT SITTING UP IN BED WITH ON CHEST. REPORTS CONT TO BREASTFEED OFF AND ON. REPORTS PAIN RESOLVED.
[2018-05-27 04:10] VITALS: BP 111/69
--- NOTE | 2018-05-27 04:10 | NUR ---
VSS. ASSISTANCE GIVEN WITH GETTING UP TO BATHROOM. VOIDED WITHOUT DIFFICULTY. LOCHIA SCANT. TORADOL ADMINISTERED.
[2018-05-27] MEDS: KETOROLAC 30 MG/ML VIAL IVP SCH ×2 (04:23→09:45)
--- NOTE | 2018-05-27 04:35 | NUR ---
ASSISTED IN GETTING LATCHED WITHOUT NIPPLE SHIELD. INFANT OBTAINED GOOD LATCH. MOM ALSO PLEASED THAT COLOSTRUM IS ABLE TO BE EXPRESSED. WILL CONT TO MONITOR AND ASSIST NEEDED.
--- NOTE | 2018-05-27 06:40 | NUR ---
IV REMOVED. ABD DRESSING REMOVED. PT UP TO BATHROOM. LOCHIA REMAINS LIGHT. PT REQUESTS PAIN MEDS. WILL ADMINISTER PERCOCET 1 TAB.
--- NOTE | 2018-05-27 07:19 | OPERATIVE REPORT ---
DATE OF SERVICE: 05/26/2018 PREOPERATIVE DIAGNOSES: A 37 and 2/7 weeks' gestation with gestational diabetes, previous and PIH. POSTOPERATIVE DIAGNOSES: A 37 and 2/7 weeks' gestation with gestational diabetes, previous and PIH. OPERATIVE PROCEDURE: Repeat low transverse delivery of a viable female infant with Apgars of 9 and 9 at 1 and 5 minutes respectively, weight of 6 pounds 12 ounces. time of 16:16 and a cord blood pH of 7.33. OPERATIVE DESCRIPTION: With the patient in the supine position under satisfactory spinal anesthesia, she was prepped and draped in the usual fashion for abdominal surgery. Goyal catheter was placed in the urinary bladder. A repeat Pfannenstiel incision was made through the skin with a scalpel by removing the patient's previous Pfannenstiel incisional scar. The abdomen was entered in the usual manner. Bladder retractor placed into position and a clean scalpel was used to make a 4 cm hysterotomy incision transversely across the lower uterine segment. A vigorous viable female infant was delivered via the uterine incision. Copious clear fluid was released on hysterotomy. The was bulb suctioned on delivery of the head and again on completion of delivery. The umbilical cord was doubly clamped and cut and the infant passed to the pediatric nurse in attendance for delivery. Cord bloods were obtained. The placenta delivered spontaneously Lisa. It was normal with a 3-vessel cord. The uterus was exteriorized anterior wiped clean with a wet laparotomy sponge. Uterine incision was closed with a running locked suture of 2-0 Vicryl. Hemostasis was complete. The uterus was returned to the abdominal cavity. All blood clot and debris was removed from the abdominal cavity. With the sponge and needle counts correct, hemostasis assured. The anterior parietal peritoneum was closed with a running suture of 2-0 Vicryl. The rectus muscles were closed and sutured well. The rectus fascia was closed with 2-0 Vicryl, subcutaneous tissue with 2-0 Vicryl and the skin was stapled. Sponge and needle counts were correct on completion of the procedure. Estimated blood loss 200 mL. The patient tolerated the procedure well and was transferred to the recovery room in stable condition. The had been taken stable to the full term nursery. Job ID: [id number] DocumentID: [id number] Dictated Date: 05/26/2018 19:52:17 Board Filler Date: 05/27/2018 07:18:28 Dictated By: PRATIBHA ROBERTS MD
[2018-05-27 08:00] VITALS: BP 117/71
--- NOTE | 2018-05-27 08:00 | NUR ---
A.M. ASSESSMENT COMPLETED. VSS. CARING FOR INFANT IN ROOM. ASSISTED WITH . INTERESTED AND LATCH ACHIEVED. DR. ROBERTS IN TO SEE PT.
[2018-05-27] MEDS ORDERED: IBUPROFEN 800 MG (MOTRIN) TAB PO ONE (08:34)
--- NOTE | 2018-05-27 08:44 | Progress Note-Standard ---
Standard Progress Note Progress Notes/Assess & Plan Date Seen by a Provider: May 27, 2018 Time Seen by a Provider: 08:43 Progress/Assessment & Plan This patient is without complaint. She is ambulating, voiding, tolerating oral intake well and has good pain control. Patient denies chest pain, denies shortness breath, denies nausea vomiting, and denies headache. Vital Signs 05/27/18 04:10 Temp 98.2 Pulse 72 Resp 16 B/P (MAP) 111/69 (83) Pulse Ox 97 O2 Delivery Room Air Vital signs are stable. Patient is afebrile. The abdomen is benign. The surgical incision is clean dry and intact. Fundus is firm below the umbilicus nontender. Extreme show no clubbing cyanosis. There is no Homans sign. There is some pretibial pitting edema that is normal. Assessment and plan postoperative day number 1 status post repeat doing well. Plan is for routine convalescence care today and discharge home tomorrow PRATIBHA ROBERTS MD May 27, 2018 08:44
[2018-05-27] MEDS ORDERED: OXYC1TAB12 PO (08:58)
[2018-05-27] MEDS ORDERED: IBUP-1780 PO (08:58)
[2018-05-27] MEDS ORDERED: DOCU100C37 PO (08:58)
--- NOTE | 2018-05-27 09:00 | Discharge Instructions ---
Discharge Instructions Discharge Medications New, Converted or Re-Newed RX: RX on Chart Patient Instructions Patient Instructions: As directed Return to The Hospital For: as directed Activity & Diet Discharge Diet: No Restrictions Activity as Tolerated: No Orders-Post D/C & Referrals Follow Up Appt: RTC on Saturday, June 02, 2018 at 930 a.m. for incision check. Call to make follow up appt. for patient in 4 weeks. Wound Care: Remove anitha, apply benzoin and steri strips. Activity Per routine post instructions. Please call in RX to patient pharmacy. Diet as tolerated Patient may shower or tub bathe as desired. Continue home meds PRATIBHA ROBERTS MD May 27, 2018 09:00
[2018-05-27] MEDS: IBUPROFEN 800 MG (MOTRIN) TAB PO SCH ×3 (09:36→21:23)
[2018-05-27] MEDS: DOCUSATE SODIUM 100 MG (COLACE) CAP PO SCH ×2 (09:36→21:22)
[2018-05-27] MEDS ORDERED: TETANUS,DIPTH,PERTUSS P/F (BOOSTRIX) 0.5 ML VIAL IM ONE (09:58)
--- NOTE | 2018-05-27 10:06 | NUR ---
TDAP GIVEN IM IN LEFT DELTOID. SITE CLEAR.
--- NOTE | 2018-05-27 10:10 | NUR ---
PT UNSURE IF SHE WANTS THE FLU VACCINE.
--- NOTE | 2018-05-27 11:00 | NUR ---
ICE PACK GIVEN TO PT FOR RIGHT SIDE OF ABDOMEN. STATES FEELS LIKE SHARP PAIN ON RIGHT SIDE. AREA CLEAR OF ANY VISIBLE ABNORMALITY.
[2018-05-27] MEDS: SIMETHICONE 80 MG (MYLICON) CHEW PO PRN ×2 (11:22→16:22)
--- NOTE | 2018-05-27 11:22 | NUR ---
ENCOURAGED AMBULATION IN [place]. STATES PASSED SOME FLATUS. SIMETHICONE GIVEN.
[2018-05-27 12:30] VITALS: BP 117/72
--- NOTE | 2018-05-27 13:02 | Anesthesia-Regional Post-Op ---
Regional Patient Condition Mental Status: Alert, Oriented x3 Circulation: Same as Pre-Op Headache: Absent Sensation: Full Recovery Motor Block: Absent Post Op Complications Complications None Follow Up Care/Instructions Patient Instructions None needed. Anesthesia/Patient Condition Patient is doing well, no complaints, stable vital signs, no apparent adverse anesthesia problems. No complications reported per nursing. JANES COBOS CRNA May 27, 2018 13:01
--- NOTE | 2018-05-27 13:30 | NUR ---
ASSISTING WITH . PT AND FRUSTRATED. REASSURANCE GIVEN. GETS OFF NIPPLE EASILY. APPEARS TO HAVE ADEQUATE ANATOMY. WILL CONTINUE TO ASSIST NEEDED.
--- NOTE | 2018-05-27 14:30 | NUR ---
PT PUMPED BREASTS. SYRINGE FED 0.8 MLS EBM. PT TRIED TO PLACE BACK TO BREAST PRIOR TO GIVING THE EBM BUT SOUND ASLEEP.
[2018-05-27 16:00] VITALS: BP 114/74
--- NOTE | 2018-05-27 16:00 | NUR ---
DENIES PAIN WHEN NOT MOVING. HAVE ENCOURAGED PT TO WALK IN THE HALLWAY NUMEROUS TIMES TODAY. PT C/O RIGHT SIDED PAIN.
--- NOTE | 2018-05-27 16:22 | NUR ---
PAIN MEDS GIVEN. OUT TO AMBULATE WITH THIS RN. MOVING SLOWLY BUT BETTER BY THE END OF THE WALK. PLANNING TO SHOWER.
--- NOTE | 2018-05-27 17:00 | NUR ---
INFANT IN NURSERY FOR LABS. RN NOTED COLOR CHANGE AND CHECKED SPO2. SEE NURSERY NOTES.
--- NOTE | 2018-05-27 17:20 | NUR ---
INFANT RETURNED TO PARENTS BY SUSAN REDDY. TALKING WITH PARENTS ABOUT SPO2 DROP AND RECOVERY.
--- NOTE | 2018-05-27 17:40 | NUR ---
INFANT BACK TO NURSERY AFTER ANOTHER EPISODE. SEE NURSERY NOTES. MOM TEARFUL. REASSURANCE GIVEN.
--- NOTE | 2018-05-27 18:00 | NUR ---
OFFERED AN ABDOMINAL BINDER FOR SUPPORT BUT PT DECLINED THIS SHIFT.
--- NOTE | 2018-05-27 19:00 | NUR ---
PT AND SPOUSE AMBULATING IN THE [place]. MOVING WELL. CONCERNED ABOUT .
[2018-05-27 21:23] VITALS: BP 131/74
--- NOTE | 2018-05-27 23:47 | NUR ---
Pt. voices desire to be discharged as infant is being transferred to [facility]. Called Dr. Shannon, new orders rc'd to remove anitha & D/C pt. POC reviewed w/pt, verbalized understanding, filling out certificate.
[2018-05-28] MEDS ORDERED: FLU QUADRIvalent (5+ YOA) 2018-2019 (AFLURIA) 0.5 ML IM ONE (01:38)
[2018-05-28] MEDS: oxyCODONE/APAP 10/325MG (PERCOCET 10) TABLET PO PRN (01:42)
[2018-05-28 02:00] VITALS: BP 121/70
--- NOTE | 2018-05-28 02:00 | NUR ---
[place] removed from abd incision, incision D/I, benzoin spray & steristrips placed.
--- NOTE | 2018-05-28 02:15 | NUR ---
Pt. left [facility] via W/C, escorted by this RN to home via private vehicle with SO. Pt's belongings & D/C instructions w/pt. RX called to [facility] [place], [place] per pt's request.
--- NOTE | 2018-06-02 09:39 | Physician Query-Final Dx ---
Final Diagnosis Give Final Diagnosis Please give Final Diagnosis ANKITA BASHIR Jun 02, 2018 09:39
== END 2018-05-28 02:15 | disposition home or self-care (01) | DRG 788 ==
LOC: LDRP 12:40 → WS 16:58
PROVIDERS: ADMIT Obstetrics & Gynecology; ATTEND Obstetrics & Gynecology
PROC: 10D00Z1 Extraction of Products of Conception, Low, Open Approach (ICD-10-PCS; principal; 2018-05-26 15:50)
DX: O34.211 Maternal care for low transverse scar from previous cesarean delivery (principal); O24.415 Gestational diabetes mellitus in pregnancy, controlled by oral hypoglycemic drugs; O13.3 Gestational [pregnancy-induced] hypertension without significant proteinuria, third trimester; O99.613 Diseases of the digestive system complicating pregnancy, third trimester; K21.9 Gastro-esophageal reflux disease without esophagitis; Z3A.37 37 weeks gestation of pregnancy; Z37.0 Single live birth; Z79.84 Long term (current) use of oral hypoglycemic drugs
CPT/HCPCS: 36415; 82962; 85025; 86850; 86900; 86901; 90471; 90686; 90715; 94664

== ENCOUNTER 2021-12-23 06:02 | Outpatient (CLI) | payer OTHER ==
[~2021-12-23] VITALS: Ht 165.1 cm; Wt 79.5 kg
[~2021-12-23 06:02] MED LIST changes: +DOCU100C37 PO; +IBUP-1780 PO; +OXYC1TAB12 PO; +PREN-37 PO
[2021-12-24] MEDS ORDERED: MULT-141 PO (14:54)
[2021-12-24] MEDS ORDERED: BUSP10TA95 PO (14:54)
[2021-12-24] MEDS ORDERED: CETI-458 PO (14:54)
== END 2021-12-24 14:58 ==
LOC: PREOP 06:02
PROVIDERS: ATTEND Obstetrics & Gynecology
DX: Z01.818 Encounter for other preprocedural examination (principal)

== ENCOUNTER 2022-01-01 08:25 | Day surgery (SDC) | payer OTHER ==
--- NOTE | 2021-12-31 17:10 | Progress Note-Pre Operative ---
Pre-Operative Progress Note Date of Available H&P: Jan 01, 2022 Date H&P Reviewed: Jan 01, 2022 Time H&P Reviewed: 10:42 History & Physical: H&P Reviewed, Patient Examed, No changes noted Changes from last HP NON Pre-Operative Diagnosis: menometrorrhagia, Chronic pelvic pain and polycystic ovaries PRATIBHA ROBERTS MD Dec 31, 2021 17:10
--- NOTE | 2021-12-31 17:11 | Progress Note-Post Operative ---
Post-Operative Progess Note Surgeon (s)/Provider Relations Specialist (s) Surgeon PRATIBHA ROBERTS MD Provider Relations Specialist: Becca Pre-Operative Diagnosis menometrorrhagia Post-Operative Diagnosis sameWith appendicitis and pelvic adhesions and endometriosisAnd pathology pending Procedure & Operative Findings Date of Procedure 12/31/21 Procedure Performed/Findings TLH with B tubesAnd right ovary and adhesiolysis and appendectomy Anesthesia Type Gen Estimated Blood Loss Estimated blood loss (mL): Minimal Specimens/Packing Specimens Removed Uterus and tubes, Right ovary and appendix PRATIBHA ROBERTS MD Dec 31, 2021 17:11
[2022-01-01] VITALS (12 sets, daily range): BP systolic 140–171; BP diastolic 83–99
[~2022-01-01] VITALS: Ht 165.1 cm; Wt 79.5 kg
[~2022-01-01 08:25] MED LIST changes: +BUSP10TA95 PO; +CETI-458 PO; +MULT-141 PO
[2022-01-01] MEDS ORDERED: ceFAZolin INJECTION 1,000 MG VIAL IV ONE (08:45)
[2022-01-01] MEDS ORDERED: LIDOCAINE/EPI 2% 1:200,00 (XYLOCAINE) 20 ML VIAL ONE (08:54)
[2022-01-01] MEDS: LACTATED RINGERS 1,000 ML IV PRN ×2 (09:15→11:15)
[2022-01-01 09:19] LABS: BASOPHILS # (AUTO) 0.1 10^3/uL (0.0-0.1); BASOPHILS % (AUTO) 1 % (0-10); EOSINOPHILS # (AUTO) 0.2 10^3/uL (0.0-0.3); EOSINOPHILS % (AUTO) 2 % (0-10); HEMATOCRIT 41 % (35-52); LYMPHOCYTES # (AUTO) 1.6 10^3/uL (1.0-4.0); LYMPHOCYTES % (AUTO) 22 % (12-44); MEAN CORPUSCULAR HEMOGLOBIN 30 pg (25-34); MEAN CORPUSCULAR HGB CONC 32 g/dL (32-36); MEAN CORPUSCULAR VOLUME 93 fL (80-99); MEAN PLATELET VOLUME 11.3 fL (9.0-12.2); MONOCYTES # (AUTO) 0.4 10^3/uL (0.0-1.0); MONOCYTES % (AUTO) 5 % (0-12); NEUTROPHILS # (AUTO) 5.2 10^3/uL (1.8-7.8); NEUTROPHILS % (AUTO) 70 % (42-75); PLATELET COUNT 223 10^3/uL (130-400); WHITE BLOOD COUNT 7.5 10^3/uL (4.3-11.0)
[2022-01-01] MEDS ORDERED: MIDAZOLAM 2 MG/2 ML (VERSED) VIAL IV ONE (10:15)
[2022-01-01] MEDS ORDERED: fentaNYL INJ 100 MCG/2 ML AMP ONE (10:41)
--- NOTE | 2022-01-01 10:41 | Discharge Inst-Surgical ---
Discharge Inst-Surgical Depart Medication/Instructions New, Converted or Re-Newed RX: Transmitted to Pharmacy Consults/Follow Up Patient Instructions: As directed Orders & Referrals Follow Up Appt: Return to clinic on 2021 for staple removal Call to make follow up appt. for patient in 4 weeks. Activity: Rest for 24 hours, than as tolerated. Wound Care: May remove Band-Aid tomorrow. Replace as desired. Keep incisions clean and dry. Wash daily with soap and water. Prescriptions for Percocet Motrin and Colace have been transmitted to patient's pharmacy from my office Patient May continue her own home medications Diet: As tolerated- shower or tub bathe as desired. No driving for 24 hours, no alcoholic beverages for 24 hours, and nothing per vagina (no tampons, douching, or intercoUrse) for 8 weeks. Patient to return to the clinic as soon as possible for: Temperature greater than 101F, Severe Pain, Foul discharge from incision or vagina, Excessive Bleeding (more than a period). Activity Activity as Tolerated: No Diet Discharge Diet: No Restrictions PRATIBHA ROBERTS MD Jan 01, 2022 10:41
[2022-01-01] MEDS ORDERED: HYDROmorphone 2 MG/ML VIAL (DILAUDID) ONE (11:11)
[2022-01-01] MEDS ORDERED: GLYCOPYRROLATE 0.2 MG/ML (ROBINUL) 2 ML VIAL ONE (12:07)
[2022-01-01] MEDS ORDERED: LIDOCAINE PF 2% 5 ML (XYLOCAINE) VIAL ONE (12:07)
[2022-01-01] MEDS ORDERED: SEVOFLURANE (ULTANE) 15 ML INHAL SOLN ONE ×2 (12:07→12:12)
[2022-01-01] MEDS ORDERED: NEOSTIGMINE (BLOXIVERZ ) 1 MG/1ML 10 ML VIAL ONE (12:07)
[2022-01-01] MEDS ORDERED: proPOfol 200 MG/20 ML (DIPRIVAN) VIAL IV ONE (12:07)
[2022-01-01] MEDS ORDERED: ONDANSETRON 4 MG/2 ML (SDV) Z0FRAN ONE (12:07)
[2022-01-01] MEDS ORDERED: ROCURONIUM 50 MG/5 ML (ZEMURON) VIAL IV ONE (12:07)
[2022-01-01] MEDS ORDERED: oxyCODONE/APAP 5/325MG (PERCOCET 5) TABLET PO PRN (12:30)
[2022-01-01] MEDS ORDERED: ESTROGENS CONJ INJECTION 25 MG in WATER (STERILE) FOR INJECTION 5 ML IV ONE (12:30)
[2022-01-01] MEDS ORDERED: ONDANSETRON 4 MG/2 ML (SDV) Z0FRAN IVP PRN ×2 (12:30)
[2022-01-01] MEDS ORDERED: fentaNYL INJ 100 MCG/2 ML AMP IVP PRN (12:30)
[2022-01-01] MEDS ORDERED: ESTROGENS CONJ INJECTION 5 ML ONE (12:40)
[2022-01-01] MEDS ORDERED: KETOROLAC 30 MG/ML VIAL ONE (12:40)
[2022-01-01] MEDS ORDERED: WATER (STERILE) FOR INJECTION 10 ML ONE (12:41)
[2022-01-01] MEDS: KETOROLAC 30 MG/ML VIAL IVP SCH ×2 (12:42→18:49)
[2022-01-01] MEDS ORDERED: fentaNYL INJ 100 MCG/2 ML AMP IVP ONE (12:45)
[2022-01-01] MEDS: ONDANSETRON 4 MG/2 ML (SDV) Z0FRAN IVP PRN ×2 (13:41→13:42)
[2022-01-01] MEDS: D5 LR IV SOLUTION 1,000 ML IV SCH ×2 (14:19→22:19)
--- NOTE | 2022-01-01 17:30 | OPERATIVE REPORT ---
DATE OF SERVICE: 01/01/2022 PREOPERATIVE DIAGNOSES: Menometrorrhagia, chronic pelvic pain, polycystic ovaries. POSTOPERATIVE DIAGNOSES: Menometrorrhagia, chronic pelvic pain, polycystic ovaries with pelvic adhesions and with appendicitis. OPERATIVE PROCEDURES: Total laparoscopic hysterectomy with right salpingo-oophorectomy, left salpingectomy, laparoscopic adhesiolysis, and laparoscopic appendectomy. OPERATIVE DESCRIPTION: With the patient in supine position under satisfactory general anesthesia, she was repositioned in the dorsal lithotomy position in the [facility] and prepped and draped in the usual fashion for abdominal and pelvic surgery using the da Walter assistance. Weighted speculum was placed in the posterior fornix of vagina, cervix exposed and grasped anteriorly with a single tooth tenaculum. Uterus was sounded to 12 cm with uterine sound. The cervix was then serially dilated with Joni dilators to accommodate a Margret II manipulator, which was placed in the usual manner using a 6 mm x 8 cm uterine probe and a 25 mm colpotomy ring. The #1 Vicryl sutures were placed at 3 and 9 o'clock position of the cervix to affix the uterus to the manipulator. Goyal catheter was placed in the urinary bladder and tenaculum and speculum were removed from the vagina. The patient was brought in low dorsal lithotomy position. A 12 mm incision was made superior to the umbilicus. Veress needle was placed through that incision into the abdominal cavity. Correct placement was confirmed with the water drop test. The abdomen was insufflated with 2.4 liters of carbon dioxide. The Veress needle was then removed and a 12 mm Optiview laparoscopic port was placed. The abdominal wall was transilluminated. Ports of 8 mm were placed through incisions of those sizes placed at the site of the patient's previous laparoscopic surgery incisions about 8 cm lateral to the umbilicus. The patient was placed in a Trendelenburg allowing the bowel to spill out of the pelvis. The da Walter column was advanced on to the patient and docked and operative instrument was placed in the right and left lateral ports and I retired to the da Walter console. At the console using the vessel sealer on the right and bipolar fenestrated grasper on the left, the pelvis was first examined. There were some adhesions of the omentum to the anterior abdominal wall. These were just distal to the left lateral port. They were grasped with the vessel sealer, clamped, cauterized, and divided until the omental adhesions were freed, the omentum was up out of the pelvis weight . The appendix was identified. It was a vermiform appendix, densely involved and adhesions on the pelvic brim, adherent to small bowel and was indurated and injected. Decision was made to go ahead with appendectomy, concurrent with the hysterectomy. The mesoappendix was clamped, cauterized and divided using the vessel sealer, taking care to lyse the adhesions of the small bowel without damage to the small bowel and free the appendix onto its attachment with the cecum and then left in situ for removal after completion of the hysterectomy. The pelvis was examined. The right fallopian tube and ovary were densely adherent to the side of the uterus and to the ovarian fossa on the right appeared to be densely involved with endometriosis. Decision was made to take out the right fallopian tube as part of the procedure as well. The left and the right ovary as well. The left ovary appeared normal. Decision was made to conserve as we had discussed with the patient and take out the left fallopian tube with the uterus in addition to the right tube and ovary. The ureters on both sides were clearly visible and peristalsing. The right fallopian tube and ovary were grasped and elevated and the mesovarium was clamped, cauterized and divided. This was continued across taking care to traverse under the adhesions on the broad ligament and over to the side of the uterus, but being well clear of the ureter. The dissection was carried across the round ligament, across the broad ligament down onto the cardinal ligament. Same procedure performed on the left although the left ovary was conserved. So, the dissection went across the mesosalpinx instead. With both tubes and the right ovary free, the anterior lower uterine segment peritoneum was then divided with monopolar damian allowing the bladder to be dissected down off the lower uterine segment. Colpotomy incision was then started at 12 o'clock position onto the colpotomy ring. That incision was continued circumferentially until it was completed. This allowed for the uterus to be extracted through the vagina with the fallopian tubes and the right ovary still attached. Vaginal cuff was closed with a single suture of V-Loc barbed suture starting from the right angle and continuing across to the left, taking care to ensure inclusion of the uterine vessel pedicles bilaterally. Hemostasis was complete. There was a small amount of blood in the cul-de-sac. This was irrigated and aspirated out. With hemostasis assured and the vaginal cuff closed and reperitonealized with the last couple of stitches of the single suture that was used, attention was now turned to the appendix. The operative instruments were removed. The ports remained in place. The da Walter column was removed from the patient. The scope was placed in the right lateral port, grasper placed in the left port and an Endo-JESICA stapler in the umbilical port. The appendix was grasped and elevated. Endo-JESICA was placed across the base of appendix and fired, severing the appendix from its attachments. The appendix was placed in the Endobag and brought out through the umbilical port and sent to pathology for permanent section. The stump of the appendix was copiously irrigated and treated with several drops of Betadine solution. The pelvis again was irrigated and all blood clot and debris was evacuated. With hemostasis assured and no remaining abnormal pathology, the procedure was terminated. The operative instruments were removed under direct vision as were the ports. The abdomen was evacuated of the insufflating gas in the process of removing the ports. The skin incisions were closed with anitha after closing the fascia at the supraumbilical incision with a [id number] suture of 2-0 Vicryl as well. The speculum was replaced in the vagina. The vaginal cuff was examined. It was completely hemostatic and completely reapproximated. With sponge and needle counts correct, hemostasis was assured and blood loss was minimal. The patient was uneventfully awakened from her general anesthesia and transferred to the recovery room in a stable condition. Job ID: [id number] DocumentID: [id number] Dictated Date: 01/01/2022 13:02:00 Straightener Hand Date: 01/01/2022 17:30:15 Dictated By: PRATIBHA ROBERTS MD
[2022-01-01] MEDS: DOCUSATE SODIUM 100 MG (COLACE) CAP PO SCH (20:04)
[2022-01-01] MEDS ORDERED: DOCUSATE SODIUM 100 MG (COLACE) CAP PO SCH (21:00)
[2022-01-02 00:39] VITALS: BP 141/78
[2022-01-02] MEDS: KETOROLAC 30 MG/ML VIAL IVP SCH ×2 (00:40→06:26)
[2022-01-02 04:30] VITALS: BP 142/82
[2022-01-02] MEDS: D5 LR IV SOLUTION 1,000 ML IV SCH (05:30)
[2022-01-02 07:30] VITALS: BP 162/78
[2022-01-02] MEDS: DOCUSATE SODIUM 100 MG (COLACE) CAP PO SCH (07:57)
--- NOTE | 2022-01-02 09:06 | Progress Note ---
Standard Progress Note Progress Notes/Assess & Plan Date Seen by a Provider: Jan 02, 2022 Time Seen by a Provider: 09:05 Progress/Assessment & Plan This patient is without complaint. She is ambulating, voiding, tolerating oral intake well and has good pain control. Vital Signs Date Time Temp Pulse Resp B/P (MAP) Pulse Ox O2 Delivery O2 Flow Rate FiO2 01/02/22 04:30 37.2 66 20 142/82 (102) 97 Room Air 01/02/22 00:39 37.3 88 20 141/78 (99) 97 Room Air 01/01/22 20:04 36.8 106 20 140/83 (102) 97 Room Air 01/01/22 16:15 92 18 163/96 (118) 100 Room Air 01/01/22 15:30 99 18 168/94 (118) 96 Room Air 01/01/22 14:18 36.8 78 20 142/99 (113) 95 Room Air 01/01/22 13:42 36.7 69 18 171/85 (113) 96 OxyMask 01/01/22 13:30 Room Air 01/01/22 13:20 36.1 12 149/92 (111) 99 Room Air 01/01/22 13:10 14 158/92 (114) 100 OxyMask 10.00 01/01/22 13:00 18 154/87 (109) 100 OxyMask 10.00 01/01/22 13:00 OxyMask 10.00 01/01/22 12:50 15 162/94 (116) 100 OxyMask 10.00 01/01/22 12:40 16 155/90 (111) 99 OxyMask 10.00 01/01/22 12:31 OxyMask 10.00 01/01/22 12:31 36.1 24 149/95 (113) 100 OxyMask 10.00 I & O 01/02/22 07:00 Intake Total 5250 ml Output Total 3400 ml Balance 1850 ml Vital signs are stable. Patient is afebrile. Blood pressures have been somewhat labile this likely is related to diuresisAs her urine output has beenSubstantial The abdomen is benign Extremities show no clubbing or cyanosis. There is no Homans' sign. Pelvic exam was deferred Assessment and plan Postoperative day #1 doing well plan is for discharge home with follow-up in clinic Final Diagnosis Menometrorrhagia PRATIBHA ROBERTS MD Jan 02, 2022 09:06
[2022-01-02 09:55] VITALS: BP 162/78
--- NOTE | 2022-01-02 13:36 | Anesthesia-General Post-Op ---
General Patient Condition Mental Status/LOC: Same as Preop Cardiovascular: Satisfactory Nausea/Vomiting: Absent Respiratory: Satisfactory Pain: Controlled Complications: Absent Post Op Complications Complications None Follow Up Care/Instructions Patient Instructions None needed. Anesthesia/Patient Condition Patient Condition Patient is doing well, no complaints, stable vital signs, no apparent adverse anesthesia problems. No complications reported per nursing. SAUL VALLECILLO CRNA Jan 02, 2022 13:36
[2022-01-06] MEDS ORDERED: IBUPROFEN 800 MG (MOTRIN) TAB PO SCH (12:00)
== END 2022-01-02 09:50 | disposition home or self-care (01) ==
LOC: SDC 08:25 → WS 13:39 → SDC 01-02 09:50
PROVIDERS: ATTEND Obstetrics & Gynecology
DX: D25.1 Intramural leiomyoma of uterus (principal); N83.201 Unspecified ovarian cyst, right side; N83.11 Corpus luteum cyst of right ovary; K38.0 Hyperplasia of appendix; N73.6 Female pelvic peritoneal adhesions (postinfective); G89.29 Other chronic pain; N92.1 Excessive and frequent menstruation with irregular cycle; F17.200 Nicotine dependence, unspecified, uncomplicated
CPT/HCPCS: 36415; 84703; 85025; 87081

== ENCOUNTER → 2022-03-01 | Outpatient (CLI) | payer OTHER ==
--- NOTE | 2022-03-01 15:42 | Diagnostic Imaging Report ---
INDICATION: Routine screening. COMPARISON: No prior mammograms are available for comparison. This is a baseline study. TECHNIQUE: 2D and 3D bilateral screening mammography was performed with CAD. FINDINGS: Both breasts are heterogeneously dense, limiting the sensitivity of mammography. No mass or malignant-appearing microcalcifications are seen. The axillae are unremarkable. IMPRESSION: No mammographic features suspicious for malignancy are identified. ACR BI-RADS Category 1: Negative. Result letter will be mailed to the patient. Note: At least 10% of breast cancer is not imaged by mammography. Dictated by: Dictated on workstation # [id number]
== END ==
LOC: RAD 09:00
PROVIDERS: ATTEND Obstetrics & Gynecology
DX: Z12.31 Encounter for screening mammogram for malignant neoplasm of breast (principal)
CPT/HCPCS: 77063; 77067